=== PATIENT | male | born 1995 | race American Indian/Alaskan Native ===

== ENCOUNTER 2017-01-23 20:32 | Emergency (ER) | payer OTHER ==
[2017-01-23 22:01] LABS: Anion Gap 15 mmol/L; BUN/Creatinine Ratio 11; Blood Urea Nitrogen 8 mg/dL (9-20); Calcium 9.2 mg/dL (8.4-10.2); Carbon Dioxide 26 mmol/L (22-30); Chloride 99.8 mmol/L (98-107); Glucose 92 mg/dL (75-100); Potassium 4.1 mmol/L (3.6-5.0); Sodium 137 mmol/L (137-145)
[2017-01-23 22:02] LABS: Basophils % (Auto) 0.7 % (0.0-1.8); Hematocrit 41.7 % (35.5-45.6); Hemoglobin 13.2 gm/dl (11.8-15.2); Mean Corpuscular HGB Conc 32 % (32-34); Mean Corpuscular Hemoglobin 29 pg (28-32); Mean Corpuscular Volume 92 fl (84-94); Platelet Count 274 K/mm3 (140-440); Red Blood Count 4.55 M/mm3 (3.65-5.03); Red Cell Distribution Width 12.8 % (13.2-15.2); White Blood Count 9.8 K/mm3 (4.5-11.0)
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
[2017-01-23 22:14] VITALS: BP 122/81
--- NOTE | 2017-01-23 23:16 | Cat Scan Report ---
FINAL REPORT PROCEDURE: CT HEAD/BRAIN WO CON TECHNIQUE: Computerized tomography of the head was performed without contrast material. HISTORY: HIV POSITIVE AND BIZARRE BEHAVIOR FOR 1.5 WEEKS COMPARISON: No prior studies are available for comparison. FINDINGS: Brain: Brain density appears normal. No evidence of intracranial hemorrhage. No parenchymal hemorrhage, mass lesions or mass effect are seen. No abnormal extraxial fluid collects or masses are seen. Ventricles: Ventricles are normal size and are midline. Bone Windows: No evidence of skull fracture. Paranasal sinuses: Small nodular density is present in 1 of the posterior ethmoid air cells on the left and 1 in the anterior ethmoid air cells on the right suggesting small polyps or mucous retention cyst.. Mastoid air cells: Clear IMPRESSION: Negative unenhanced CT scan of the brain. Minimal paranasal sinus disease as described.
[2017-01-24 00:13] LABS: Urine Drugs of Abuse Note Disclamer
[2017-01-24 01:21] LABS: Bilirubin,Urine NEG (Negative); Blood,Urine NEG (Negative); Ketones,Urine NEG (Negative); Leukocyte Esterase,Urine NEG (Negative); Mucus,Urine 2+ /HPF; Nitrite,Urine NEG (Negative); Urobilinogen,Urine < 2.0 mg/dL (<2.0); WBC,Urine < 1.0 /HPF (0.0-6.0)
== END 2017-01-24 01:45 | disposition other institution (70) ==
LOC: ED 20:32 → EEVIPCON 20:32 → ED 01-24 01:45
DX: F22 Delusional disorders (principal)
CPT/HCPCS: 36415; 70450; 80048; 80307; 81001; 85025; 99285; G0480; 80320

== ENCOUNTER 2017-01-26 17:14 | Emergency (ER) | payer OTHER ==
[2017-01-26] MEDS ORDERED: NACL 0.9% 1000 ML 1,000 ML IV ONE ×2 (18:20→21:55)
[2017-01-26 18:50] LABS: Basophils % (Auto) 0.6 % (0.0-1.8); Eosinophils % (Auto) 0.7 % (0.0-4.3); Hematocrit 43.6 % (35.5-45.6); Hemoglobin 14.2 gm/dl (11.8-15.2); Mean Corpuscular HGB Conc 33 % (32-34); Mean Corpuscular Hemoglobin 30 pg (28-32); Mean Corpuscular Volume 91 fl (84-94); Platelet Count 262 K/mm3 (140-440); Red Blood Count 4.78 M/mm3 (3.65-5.03); Red Cell Distribution Width 13.2 % (13.2-15.2); White Blood Count 11.8 K/mm3 (4.5-11.0)
[2017-01-26 19:13] LABS: Alanine Aminotransferase 20 units/L (7-56); Albumin 4.5 g/dL (3.9-5); Albumin/Globulin Ratio 1.6 %; Alkaline Phosphatase 66 units/L (35-129); Anion Gap 18 mmol/L; BUN/Creatinine Ratio 13; Blood Urea Nitrogen 12 mg/dL (9-20); Calcium 9.2 mg/dL (8.4-10.2); Carbon Dioxide 22 mmol/L (22-30); Chloride 101.9 mmol/L (98-107); Glucose 85 mg/dL (75-100); Potassium 4.2 mmol/L (3.6-5.0); Sodium 138 mmol/L (137-145); Total Protein 7.4 g/dL (6.3-8.2)
--- NOTE | 2017-01-26 20:01 | Cat Scan Report ---
FINAL REPORT PROCEDURE: CT head without contrast. TECHNIQUE: Computerized tomography of the head was performed without contrast material. HISTORY: Seizure. COMPARISON: CT head 01/23/2017. FINDINGS: The ventricles are normal in size. The crum matter and white matter appear normal. There are no mass lesions. There is no intracranial hemorrhage. There are no signs of acute infarction. The calvarium appears intact. The mastoid air cells and visualized paranasal sinuses are clear. IMPRESSION: Normal study.
[2017-01-27] MEDS ORDERED: NACL 0.9% 1000 ML 1,000 ML IV ONE (00:18)
[2017-01-27 00:40] LABS: Urine Drugs of Abuse Note Disclamer
[2017-01-27 00:49] LABS: Bilirubin,Urine NEG (Negative); Blood,Urine NEG (Negative); Ketones,Urine TR mg/dL (Negative); Leukocyte Esterase,Urine NEG (Negative); Mucus,Urine 3+ /HPF; Nitrite,Urine NEG (Negative); Protein,Urine <15 mg/dL mg/dL (Negative)
--- NOTE | 2017-01-27 01:15 | Emergency Department Report ---
ED General Adult HPI - General Chief complaint: Psych Stated complaint: COMPLAINS OF SEIZURE Time Seen by Provider: 01/26/17 18:15 Source: EMS Mode of arrival: Stretcher Limitations: Altered Mental Status - History of Present Illness Initial comments: Patient is 21 years old male sent from psychiatric facility for medical clearance. 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 He had one episode of seizure like activity at the custodial he received Ativan. Patient is not getting more history. -: Gradual Severity scale (0 -10): 0 - Related Data Home Medications Medication Instructions Recorded Confirmed Last Taken Unobtainable 01/23/17 01/23/17 Unknown Allergies Allergy/AdvReac Type Severity Reaction Status Date / Time Unable to Assess Allergy Unverified 01/23/17 21:16 ED Review of Systems ROS: Stated complaint: COMPLAINS OF SEIZURE Other details as noted in HPI Comment: Unobtainable due to pts medical conditions ED Past Medical Hx - Past Medical History Hx Psychiatric Treatment: Yes (anxiety, psychosis) Hx HIV: Yes Additional medical history: unobtainable - Surgical History Additional Surgical History: unobtainable - Social History Smoking Status: Unknown if ever smoked - Medications Home Medications: Home Medications Medication Instructions Recorded Confirmed Last Taken Type Unobtainable 01/23/17 01/23/17 Unknown History ED Physical Exam - General Limitations: Altered Mental Status General appearance: alert, in no apparent distress - Head Head exam: Present: atraumatic, normocephalic, normal inspection - ENT ENT exam: Present: normal exam, mucous membranes dry - Neck Neck exam: Present: normal inspection, full ROM. Absent: tenderness, meningismus, lymphadenopathy, thyromegaly - Respiratory Respiratory exam: Present: normal lung sounds bilaterally. Absent: respiratory distress, wheezes, rales, rhonchi, stridor, chest wall tenderness, accessory muscle use, decreased breath sounds, prolonged expiratory - Cardiovascular Cardiovascular Exam: Present: regular rate, normal rhythm, normal heart sounds - GI/Abdominal GI/Abdominal exam: Present: soft, normal bowel sounds. Absent: distended, tenderness, guarding, rebound, rigid, organomegaly, mass, bruit, pulsatile mass , hernia - Extremities Exam Extremities exam: Present: normal inspection, full ROM, normal capillary refill - Back Exam Back exam: Present: normal inspection, full ROM. Absent: tenderness, CVA tenderness (R), CVA tenderness (L) - Neurological Exam Neurological exam: Present: alert, CN II-XII intact - Psychiatric Psychiatric exam: Present: depressed - Skin Skin exam: Present: warm, normal color ED Course Vital Signs 01/26/17 01/26/17 01/26/17 17:22 17:28 17:49 Temperature 99.7 F H 98.3 F Pulse Rate 105 H 87 89 Respiratory 18 15 15 Rate Blood Pressure 134/83 126/84 Blood Pressure 131/88 [Left] O2 Sat by Pulse 97 99 98 Oximetry 01/26/17 01/26/17 01/26/17 18:00 18:15 18:31 Temperature Pulse Rate 84 80 88 Respiratory 15 14 15 Rate Blood Pressure 120/82 111/73 111/73 Blood Pressure [Left] O2 Sat by Pulse 97 Oximetry 01/26/17 01/26/17 01/26/17 18:45 19:00 19:15 Temperature Pulse Rate 76 79 85 Respiratory 17 15 16 Rate Blood Pressure 111/73 117/70 133/88 Blood Pressure [Left] O2 Sat by Pulse 98 97 Oximetry 01/26/17 01/26/17 01/26/17 20:53 21:01 21:15 Temperature Pulse Rate 59 L 64 68 Respiratory 11 L 11 L 11 L Rate Blood Pressure 127/82 108/61 133/88 Blood Pressure [Left] O2 Sat by Pulse 100 98 98 Oximetry 01/26/17 01/26/17 01/26/17 21:30 21:45 22:00 Temperature Pulse Rate 101 H 52 L 63 Respiratory 14 15 12 Rate Blood Pressure 125/81 125/81 110/74 Blood Pressure [Left] O2 Sat by Pulse 100 100 97 Oximetry 01/26/17 01/26/17 01/26/17 22:15 22:30 22:45 Temperature Pulse Rate 74 64 69 Respiratory 13 13 12 Rate Blood Pressure 110/74 108/75 108/75 Blood Pressure [Left] O2 Sat by Pulse 99 100 98 Oximetry 01/26/17 01/26/17 01/26/17 23:00 23:15 23:30 Temperature Pulse Rate 69 80 57 L Respiratory 12 14 11 L Rate Blood Pressure 108/75 100/57 114/72 Blood Pressure [Left] O2 Sat by Pulse 98 98 100 Oximetry 11/19/17 11/19/17 11/19/17 23:43 23:45 23:50 Temperature Pulse Rate 61 53 L 61 Respiratory 12 11 L 12 Rate Blood Pressure 114/72 114/72 114/72 Blood Pressure [Left] O2 Sat by Pulse 99 100 99 Oximetry 01/27/17 01/27/17 01/27/17 00:00 00:03 00:15 Temperature Pulse Rate 65 65 64 Respiratory 12 12 11 L Rate Blood Pressure 101/58 101/58 101/58 Blood Pressure [Left] O2 Sat by Pulse 98 98 99 Oximetry 01/27/17 01/27/17 00:17 00:31 Temperature Pulse Rate 80 93 H Respiratory 12 11 L Rate Blood Pressure 101/58 121/91 Blood Pressure [Left] O2 Sat by Pulse 100 99 Oximetry - Reevaluation(s) Reevaluation #1: 01/27/17 01:13 Patient remained stable in the ER, no seizure activity noticed. No nausea no vomiting. Patient received 2 L of NS. ED Medical Decision Making - Lab Data Result diagrams: 01/26/17 18:31 01/26/17 18:31 Critical care attestation.: If time is entered above; I have spent that time in minutes in the direct care of this critically ill patient, excluding procedure time. ED Disposition Clinical Impression: Altered mental status, Dehydration, Catatonic schizophrenia Disposition: DC/TX-65 PSY HOSP/PSY UNIT Is pt being admited?: No Condition: Stable Instructions: Altered Mental Status (ED), Dehydration (ED) Referrals: PRIMARY CARE, [Primary Care Provider] - 3-5 Days
[2017-01-27 01:39] VITALS: BP 107/60
== END 2017-01-27 02:00 ==
LOC: ED 17:14
DX: F20.2 Catatonic schizophrenia (principal); E86.0 Dehydration; R41.82 Altered mental status, unspecified; Z21 Asymptomatic human immunodeficiency virus [HIV] infection status
CPT/HCPCS: 36415; 70450; 80053; 80307; 81001; 82962; 85025; 96360; 96361; 99285; J7030

== ENCOUNTER 2019-01-28 20:14 | Emergency (ER) | payer OTHER ==
[2019-01-28] MEDS ORDERED: traMADol 50 MG TAB PO ONE (23:56)
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
== END 2019-01-29 00:45 | disposition home or self-care (01) ==
LOC: ED 20:14
DX: R51 Headache (principal); F41.9 Anxiety disorder, unspecified; Z79.899 Other long term (current) drug therapy; Z21 Asymptomatic human immunodeficiency virus [HIV] infection status; V87.7XXA Person injured in collision between other specified motor vehicles (traffic), initial encounter; Y93.89 Activity, other specified; Y92.488 Other paved roadways as the place of occurrence of the external cause; Y99.8 Other external cause status
CPT/HCPCS: 99282